=== PATIENT | male | born 1970 | race Caucasian/White ===

== ENCOUNTER 2025-04-20 18:16 | Emergency (ER) | payer OTHER, SELFPAY ==
[2025-04-20 18:18] VITALS: BP 157/91
[2025-04-20 18:39] LABS: Hematocrit 41.8 % (39.0-52.0); Hemoglobin 15.3 g/dL (13.0-18.0); Mean Corp Hgb Conc. 36.6 g/dL (33.0-37.0); Mean Corpuscular Volume 89.5 fL (80.0-94.0); Nucleated Red Blood Cells % 0 % (-); Platelet Count 250 10^3/uL (130-400); Red Cell Dist. Width 12.1 % (11.5-14.5)
[2025-04-20 19:05] LABS: ALT (SGPT) 38 U/L (0-50); AST (SGOT) 29 U/L (17-59); Albumin 4.9 g/dl (3.5-5.0); Alkaline Phosphatase 54 U/L (38-126); Blood Urea Nitrogen 13 mg/dl (9-20); Calcium 9.4 mg/dl (8.4-10.2); Carbon Dioxide 26 mmol/L (22-30); Chloride 105 mmol/L (98-107); Glucose 85 mg/dl (70-99); Potassium 4.2 mmol/L (3.5-5.1); Sodium 140 mmol/L (135-145); Total Protein 7.8 g/dl (6.3-8.2); eGFR > 60.00
[2025-04-20 19:16] LABS: Troponin I < 0.012 ng/ml
[2025-04-20 21:37] VITALS: BMI 37.6
[2025-04-20 21:45] VITALS: BP 140/89
[2025-04-20 22:00] VITALS: BP 138/96
[2025-04-20 23:00] VITALS: BP 133/92
[2025-04-21] VITALS: BP 124/86
[2025-04-21 00:42] VITALS: BP 122/102
[2025-04-21 01:00] VITALS: BP 134/117
[2025-04-21 01:12] VITALS: BP 125/82
[2025-04-21 01:17] LABS: Troponin I < 0.012 ng/ml
[2025-04-21 02:00] VITALS: BP 122/89
--- NOTE | 2025-04-21 02:32 | ED.GENMED ---
History of Present Illness
General
Chief Complaint: Breathing Problem
Source: patient
Exam Limitations: none
Time Seen by Provider: 04/20/25 23:04
Nursing documentation reviewed up to this point in time: agreed with
History of Present Illness
History of Present Illness:
54-year-old male past medical history of hyperlipidemia, GERD presenting to the emergency department today with concerns of intermittent shortness of breath over the past few weeks and also noted some left-sided chest and shoulder discomfort over
the past few days that has been somewhat intermittent as well. Seems to be slightly worse with movement. Denies associated nausea vomiting diaphoresis. Denies any recent trauma surgery immobilization, estrogen product usage, leg swelling or
history of blood clots
Review of Systems
Review of Systems
Allergies reviewed?: Yes
All Other Systems: ROS reviewed and negative except as documented in HPI and ROS
Phy Exam
Physical Exam
Physical Exam:
GENERAL: Alert , in no apparent distress
EYE: pupils equal and reactive
NECK: Supple, no significant adenopathy.
ENT: o/p clr, mmm.
CARDIAC: Regular rate and rhythm .
LUNGS: Clear breath sounds bilaterally, no acute respiratory distress, no wheezes/rales/rhonchi
ABDOMEN: Soft, without focal tenderness, no r/g, no cvat
NEUROLOGICAL: Alert and oriented, no focal neuro deficits
SKIN: Warm and dry, skin intact.
MUSCULOSKELETAL: No edema, well perfused.
PSYCH: Normal and appropriate interaction.
Scores
Heart Failure Risk
Heart Failure Risk Score: Not Applicable
Course
Orders/Labs/Results
Orders:
Orders
04/20/25 18:21
Electrocardiogram (*1) Urgent
Reason for Study: Chest Pain
EKG- Treatment ONCE
04/20/25 18:30
Complete Blood Count/With Diff Urgent
Comprehensive Metabolic Panel Urgent
Troponin I Urgent
04/21/25 00:04
Electrocardiogram (*1) Urgent
Reason for Study: Chest Pain
EKG- Treatment ONCE
Chest [CR Chest - 2 Views ] Urgent
Comment:
Reason For Exam: left cp sob
04/21/25 00:38
Troponin I Urgent
04/21/25 02:32
Ketorolac [Toradol] 15 mg IM NOW STA
Abnormal Lab Results
04/20/25
18:30
RBC 4.67 L 10^6/uL
(4.70-6.10)
MCH 32.8 H pg
(27.0-31.0)
Absolute Monos (auto) 0.7 H 10^3/uL
(0.1-0.6)
04/20/25 18:30
04/20/25 18:30
Vital Signs
Initial and Last Documented VS:
Initial Vital Signs
Temp Pulse Resp BP Pulse Ox
98.4 F 81 18 157/91 99
04/20/25 18:18 04/20/25 18:18 04/20/25 18:18 04/20/25 18:18 04/20/25 18:18
Last Documented Vital Signs
Temp Pulse Resp BP Pulse Ox
98.5 F 71 10 125/82 93
04/20/25 21:50 04/21/25 01:12 04/21/25 01:12 04/21/25 01:12 04/21/25 01:12
MDM/Problems Addressed
MDM/Problems Addressed:
54-year-old male presenting to the emergency department with concerns of intermittent shortness of breath over the past few weeks as well as left-sided shoulder achiness intermittently over the past few days ongoing today. On arrival blood pressure
elevated otherwise vital signs are normal. Labs unremarkable troponin negative EKG normal chest x-ray normal without emergent findings. Troponin repeated and also negative. Very low risk for PE. No evidence of any emergent pathology at this
time. Advised for close cardiac follow-up. Return precautions given.
*Pulse Oximetry
SaO2: 93
Oxygen Mode of Delivery: Room air
Patient hypoxic: no (93)
*Critical Care Note
Total Time (30-74mins, 75-104mins- exclusive of procedures): Not Applicable
ED Attending Note
-
Portions of this chart may have been created with voice recognition software.� Occasional wrong word or��sound alike� substitutions may have occurred due to the inherent limitations of voice recognition software.
Discharge Plan
Departure
Patient Disposition: Home (Routine Discharge)
Date of Disposition: 04/21/25
Time of Disposition: 02:34
Patient with high blood pressure during this ER visit?: No
Condition: Good
Covid-19: Not Applicable
Discharge Problem:
Chest pain
Instructions: Chest Pain CBC Follow Up
Prescriptions:
No Action
dicyclomine 20 MG tablet
20 mg PO Q4
albuterol 17 GM aerosol
1 puff inhalation PRN (Reason: asthma)
escitalopram oxalate 10 MG tablet
10 mg PO DAILY
esomeprazole magnesium [Nexium Packet] [address] for susp in packet
10 mg PO DAILY
Referrals:
Corbin Elaine MD [Family Provider, [facility]]
Activity Restrictions/Additional Instructions:
You came to the emergency department today with concerns of chest discomfort. Please follow closely with the cruise counselor. Return for any worsening, new or concerning symptoms.
Interventions
Interventions:
*Risk Screen - Suicide Last Done: 04/20/25 18:18
*General Assessment Last Done: 04/20/25 21:37
*Neglect/Abuse Screening Last Done: 04/20/25 21:37
*ED- Fall Risk Assessment Last Done: 04/20/25 21:37
*ED COVID-19 Vaccine History Last Done: 04/20/25 21:37
ED- Cardiac Assessment Last Done: 04/20/25 21:37
ED- Pulmonary Assessment Last Done: 04/20/25 21:37
Discharge Date and Time
Print Language: TONGAN
[2025-04-21 03:00] VITALS: BP 120/91
[2025-04-21] MEDS: TORADOL 15 MG IM (03:11)
== END 2025-04-21 03:15 | disposition home or self-care (01) ==
LOC: EMR 18:16
PROVIDERS: Emergency Medicine; Physician Assistant; EMERGENCY PHYSICIAN Student in an Organized Health Care Education/Training Program; FAMILY PHYSICIAN Family Medicine
DX: R07.9 Chest pain, unspecified (principal); E78.5 Hyperlipidemia, unspecified; K21.9 Gastro-esophageal reflux disease without esophagitis
CPT/HCPCS: 99284; 96372; 71046; 80053; 84484; 85025; 93005

== ENCOUNTER → 2025-05-21 08:16 | Outpatient (REF) | payer OTHER, SELFPAY ==
--- NOTE | 2025-05-21 11:51 | CARDSERVDEF ---
Echocardiogram with Definity completed after protocol screening completed. Allergies verified.
Patent IV site: _left AC____
IV site flushed with 0.9% NaCl pre and post administration.
Diluted bolus method utilized to enhance visualization of ventricular flowers.
Total volume given: __4.0__ mL
Patient tolerated all procedures well without complications.
#20 andrew placed. Definity given prior to exercising and a min left of exercising. INT d/c'd pulled after test. pressure held. No bleeding noted.
== END ==
LOC: RCS 08:16
PROVIDERS: ATTENDING PHYSICIAN Student in an Organized Health Care Education/Training Program; FAMILY PHYSICIAN Family Medicine
DX: R06.02 Shortness of breath (principal)
CPT/HCPCS: 93017; 93350; Q9957